=== PATIENT | male | born 2000 | race Hispanic/Latino ===

== ENCOUNTER 2023-01-02 14:02 | Emergency (ER) | payer BC ==
--- OUTSIDE RECORDS SUMMARY | 2023-01-02 14:06 | XMS REPORT | Continuity of Care Document ---
:2000 Author Organization [facility] t Address [address] [place] [address] Care Team Providers Name Role Phone SAMMY RODRIGUEZBRANDON Primary Care Physician Unavailable OVI MOBLEY Attending Clinician Unavailable Humberto Rhoades DO Attending Clinician Ovi Mobley MD Attending Clinician JODY PRATT M.D. Attending Clinician Unavailable Jody Pratt Attending Clinician ASHLEY OSBORN P.A. Attending Clinician Unavailable ATHLETIC, CREDIT CARD CONTROL CLERK Attending Clinician Unavailable Payers Payer Name Policy Type Policy Number Effective Date Expiration Date Suri schultz [facility] [id number] 2017 00:00:00 SELECT Problems Condition Condition Condition Status Onset Resolution Last Treating Co mments Source Name Details Category Date Date Treatment Clinician Date LT KNEE LT KNEE Diagnosis Active 2016-052017-07-08 Memoria Active 0-18 17:28:00 l 02/27/2017 08:00: Shalom stout [facility] 00 LT KNEE LT KNEE Diagnosis Active 2016-052017-09-16 Memoria MPFL MPFL 0-18 17:25:00 l Active 08:00: Sergio 02/27/2017 00 [facility] KNEE KNEE Diagnosis Active 2016-052017-04-11 Mem oria Active 0-18 13:45:00 l 02/27/2017 08:00: Shalom stout [facility] 00 S80.02XA - S80.02XA Diagnosis Active 2016-052017-02-19 Memoria "CONTUSION - 0-09 16:18:00 l OF LEFT "CONTUSION 00:01: Angle nn KNEE, INIT OF LEFT 00 KNEE, INIT Active 02/18/2017 GARCIA Hill Muscle Muscle Problem 2017-11-12 Robin graeme weakness weakness 11:28:10 l (generaliz [facility] ed) 11/12/2017 [facility] Difficulty Difficult Problem 2017-11-12 Memoria in y in 11:28:10 l walking, walking, Shalom n not not elsewhere elsewhere classified classified 8 [facility] Activity, Activity, Problem 2017-11-12 Memoria [place] 11:28:10 l tackle tackle Chaplin football football 11/12/2017 [facility] Strain of Strain of Problem 2017-11-12 Memoria other other 11:28:10 l muscle(s) muscle(s) Herm jagjit and and tendon(s) tendon(s) at lower at lower leg level, leg level, left leg, left leg, subsequent subsequent encounter encounter 11/12/2017 [facility] Pain in Pain in Problem 2017-11-12 Me moria left knee left knee 11:28:10 l 11/12/2017 Shalom n [facility] Contusion Contusion Problem Active [place] of knee, of knee, HL7.CCDAR2 Ph ysici left left ans History of Past Illness Condition Condition Condition Status Onset Resolution Last Treating Co mments Source Name Details Category Date Date Treatment Clinician Date Lateral Lateral Problem 2017-0 2017-11-12 2017-11-12 Memoria subluxatio subluxatio 4-03 11:28:10 11:28:10 l n of left n of left 04:39: Herm jagjit patella, patella, 41 subsequent subsequent encounter encounter 08/13/2017 11/12/2017 [facility] Allergies, Adverse Reactions, Alerts Allergy Allergy Status Severity Reaction(s) Onset Inactive Treating Comm ents Source Name Type Date Date Clinician NO KNOWN Drug Active Univers ALLERGIE Class ity of [facility] Medical Branch Social History Social Habit Start Date Stop Date Quantity Comments Source Exposure to 2022-07-18 2022-07-[address] [facility] SARS-CoV-2 (event) 00:00:00 05:58:00 Medica l Branch Sex Assigned At 2000 2000 [facility] [place] 00:00:00 00:00:00 [facility] Smoking Status Start Date Stop Date Source Never smoked tobacco [facility] Medications Ordered Filled Start Stop Current Ordering Indication Dosage Frequency Signature Comments Components Source Medication Medication Date Date Medication? Clinician (SIG) Name Name NaCl 0.9% 2022- No 1000mL at 999 Uni vers (NS) bolus 3-18 03-18 mL/hr, ity of infusion 13:30: 13:41 1,000 mL, Dejuan as 1,000 mL 00 :00 IV Medical Infusion, Branch ONCE, 1 dose, On 07/28/22 at 0830, STAT NaCl 0.9% 2022- No 1000mL at 999 Uni vers (NS) bolus 3-18 03-18 mL/hr, ity of infusion 11:15: 12:40 1,000 mL, Dejuan as 1,000 mL 00 :00 IV Medical Infusion, Branch ONCE, 1 dose, On 07/28/22 at 0615, STAT Celecoxib Celecoxib 2016-05 Yes ASHLEY 1 tab PO UT 200 MG Oral 200 MG Oral 0-10 PACINI BID with Physici Capsule Capsule 00:00: P.A. food x 2 ans 00 weeks. Vital Signs Vital Name Observation Time Observation Value Comments Source Systolic blood 2022-07-28 13:23:00 152 [facility]Hg[facility] Diastolic blood 2022-07-28 13:23:00 72 mm[facility]Hg[facility] Heart rate 2022-07-28 13:23:00 78 /min [facility] Respiratory rate 2022-07-28 13:23:00 17 /min [facility] Oxygen saturation in 2022-07-28 13:23:00 99 /min [facility] Arterial blood by [facility] Pulse oximetry Branch Body temperature 2022-07-28 10:55:00 36.5 Poornima [facility] Body height 2022-07-28 10:55:00 177.8 cm [facility] Body weight 2022-07-28 10:55:00 87.544 kg [facility] BMI 2022-07-28 10:55:00 27.69 kg/m2 [facility] Procedures Procedure Date / Time Performing Clinician Source Performed FREE T4 2022-07-28 11:16:00 Ovi Mobley [facility] THYROID STIMULATING 2022-07-28 11:16:00 [facility] Branch COMP. METABOLIC PANEL 2022-07-28 11:16:00 Humberto Rhoades [facility] ([id number]) [facility] CBC WITH DIFF 2022-07-28 11:16:00 Humberto Rhoades [facility] D-DIMER 2022-07-28 11:16:00 Humberto Rhoades [facility] URINALYSIS 2022-07-28 11:16:00 Singer Humberto [facility] URINE DRUG (IMMUNOASSAY) 2022-07-28 11:16:00 Humberto Rhoades [facility] DRUG Medical [facility] SCREEN W/O REFLEX NOTICE OF PRIVACY 2022-07-28 10:49:42 Doctor Unassigned, No Univ [facility] PRACTICES Name Medical Branch CONSENT/REFUSAL FOR 2022-07-28 10:48:18 Doctor Unassigned, No Un [facility] DIAGNOSIS AND TREATMENT Name Medical Branch [U] XRAY KNEE 3 VWS LEFT 2017-04-23 00:00:00 [facility] [id number] [U] XRAY KNEE 3 VWS LEFT 2017-04-09 00:00:00 [facility] [id number] [U] XRAY KNEE 3 VWS LEFT 2017-03-25 00:00:00 [place] [facility] [id number] Encounters Start End Encounter Admission Attending Care Care Encounter Source Date/Time Date/Time Type Type Clinicians Facility Department ID 2022-07-28 2022-07-28 Emergency X MISSY MOBLEY ERT [id number] Univers 05:59:00 09:12:00 OVI krishnamurthy [facility] 2022-07-28 2022-07-28 Emergency Humberto Rhoades [facility] [[email or web address]] [id number]. 114 [id number] Univers 05:59:00 09:12:00 [id number] [id number] [facility] 084 Branch 2017-11-19 2017-11-19 JANES Zamora [facility] [id number] [place] 09:00:00 09:00:00 t; JODY PRATT, at [facility] Amirah Martel M.D. 2017-09-16 2017-10-16 OP Therapy nullFlavo [facility] [id number] Memoria 22:00:00 04:59:00 Patients r 04 alin RosadoChaplin 2017-09-16 2017-10-16 OP Therapy nullFlavo [facility] [id number] Memoria 22:00:00 04:59:00 Patients r 04 alin Sergio 2017-09-16 2017-10-15 Outpatient Lowe, 2.16.840. 2.16.840.1. 8 [id number] 17:00:00 23:59:00 Jody Lobato.[id number]. [id number] 04 Pete [id number] 5.62 2017-10-08 2017-10-08 JANES Zamora [facility] [id number] [place] 07:00:00 07:00:00 t; JODY PRATT at [facility] Amirah Martel M.D. 2017-08-14 2017-09-13 OP Therapy nullFlavo [facility] [id number] Memoria 22:00:00 04:59:00 Patients r 03 alin Sergio 2017-08-14 2017-09-13 OP Therapy nullFlavo [facility] [id number] Memoria 22:00:00 04:59:00 Patients r 03 alin Sergio 2017-08-14 2017-09-12 Outpatient Santa, 2.16.840. 2.16.840.1. 8 [id number] 17:00:00 23:59:00 Jody Yadav518331. [id number] 03 Pete [id number] 5.62 2017-09-10 2017-09-10 JANES Zamora UTP [id number] [place] 08:30:00 08:30:00 t; JODY PRATT [facility] [place] Amirah Martel M.D. 2017-07-08 2017-08-07 OP Therapy nullFlavo [facility] [id number] Memoria 23:00:00 04:59:00 Patients r 02 alin Sergio 2017-07-08 2017-08-07 OP Therapy nullFlavo [facility] [id number] Memoria 23:00:00 04:59:00 Patients r [place] 2017-07-08 2017-08-06 Outpatient Santa 2.16.840. 2.16.840.1. 8 [id number] 17:00:00 23:59:00 Jody [id number]. [id number] 02 Pete [id number] 5.62 2017-08-06 2017-08-06 Shelly PRATT [facility] Orthopedics [id number] [place] 09:30:00 09:30:00 t; JODY PRATT at [facility] Amirah Martel M.D. 2017-07-09 2017-07-09 Shelly PRATT [facility] [id number] [place] 09:00:00 09:00:00 t; JODY PRATT [facility] [place] Amirah Martel M.D. 2017-06-04 2017-06-04 Shelly OSBORN [facility] [id number] [place] 14:00:00 14:00:00 t; ASHLEY OSBORN, Ph ysici ASHLEY, P.A. ans P.A. 2017-04-10 2017-05-10 OP Therapy nullFlavo [facility] [id number] Memoria 14:00:00 05:59:00 Patients r [place] 2017-04-10 2017-05-10 OP Therapy nullFlavo [facility] [id number] Memoria 14:00:00 05:59:00 Patients r [place] 2017-04-10 2017-05-09 Outpatient Santa, 2.16.840. 2.16.840.1. 8 [id number] 08:00:00 23:59:00 Jody [id number] 01 Pete [id number] 5.62 2017-04-23 2017-04-23 Shelly PRATT [facility] Orthopedics [id number] [place] 08:00:00 08:00:00 t; JODY PRATT, at [facility] Amirah Martel M.D. 2017-04-09 2017-04-09 Shelly OSBORN [facility] Orthopedics [id number] [place] 14:00:00 14:00:00 t; [facility] P.AJuan 2017-02-28 2017-03-30 OP Therapy nullFlavo [facility] [id number] Memoria 13:49:00 05:59:00 Patients r 00 l Sergio 2017-02-28 2017-03-30 OP Therapy nullFlavo [facility] [id number] Memoria 13:49:00 05:59:00 Patients r 00 l Chaplin 2017-02-28 2017-03-29 Outpatient Santa, 2.16.840. 2.16.840.1. 8 [id number] 08:49:00 23:59:00 Jody [id number]. [id number] 00 Pete [id number] 5.62 2017-03-25 2017-03-25 Appointmen IRENA, [facility] Memorial [id number] [place] 15:00:00 15:00:00 t; [facility] Orthopedics ans P.AJuan 2017-03-11 2017-03-11 Appointmen ATHLETIC, UTP UTP [id number] [place] 13:30:00 13:30:00 t; CREDIT CARD CONTROL CLERK Physic i ATHLETIC, ans CREDIT CARD CONTROL CLERK 2017-03-04 2017-03-04 Appointmen ATHLETIC, UTP UTP [id number] [place] 09:30:00 09:30:00 t; CREDIT CARD CONTROL CLERK Physic i ATHLETIC, ans CREDIT CARD CONTROL CLERK 2017-02-27 2017-02-27 Appointmen LOWE, [facility] UTP [id number] [place] 09:30:00 09:30:00 t; JODY PRATT Physi ci WALTER, M.D. ans M.D. 2017-02-22 2017-02-22 Appointmen SANTA, [facility] UTP [id number] [place] 13:00:00 13:00:00 t; JODY PRATT Physi ci WALTER, M.D. ans M.D. 2017-02-19 2017-02-20 Outpt Diag nullFlavo [facility] [id number] Memoria 21:08:00 04:59:00 Services r Outpatient 00 l Imaging Sergio Chaplin 2017-02-19 2017-02-20 Outpt Diag nullFlavo [facility] [id number] Memoria 21:08:00 04:59:00 Services r Outpatient 00 l Imaging Sergio Hill 2017-02-19 2017-02-19 [facility]patient [facility] [id number] 16:08:00 23:59:00 Jody 00 Pete 2017-02-19 2017-02-19 AppointJANES Moya Orthopedics [id number] [place] 13:45:00 13:45:00 t; ASHLEY OSBORN, at [facility] Ph ysici Saritha RAMIREZ ans P.AJuan Results Test Description Test Time Test Comments Results Result Comments Source THYROID STIMULATING HORMONE 2022-07-28 13:24:39 Test Item Value Reference Range Interpretation Comme nts TSH (test code = 8047336230) 4.65 See_Comment [Automated message] The system which generated this result transmitted ref erence range: 0.45 - 4.70 mIU/L. T he reference range was not used to interpret this result as brent l/abnormal. Lab Interpretation (test code = Normal 34092-2) [facility] [id number] 13:10:37 Test Item Value Reference Range Interpretation Comments FREE T4 (test code = 1.06 See_Comment [Autom ated message] [id number]) The system whic h generated this result transmitted ref erence range: 0.78 - 2 .20 ng/dL:. The ref erence range was not u sed to interpret this result as normal/abnor mal. Lab Interpretation (test Normal code = 50094-8) [facility]. METABOLIC PANEL (47271)2022-07-28 12:26:25 Test Item Value Reference Range Interpretation Comments NA (test code = 136 mmol/L 135-145 9791803859) K (test code = 3.5 mmol/L 3.5-5.0 1573840219) CL (test code = 101 mmol/L 98-108 0618887590) CO2 TOTAL (test code = 24 mmol/L 23-31 8327777329) AGAP (test code = 11 2-16 6661652785) BUN (test code = 14 mg/dL 7-23 7813065078) GLUCOSE (test code = 113 mg/dL 70-110 H 5157566067) CREATININE (test code = 1.08 mg/dL 0.60-1.25 0278665922) TOTAL BILI (test code = 0.7 mg/dL 0.1-1.5 9811093605) CALCIUM (test code = 9.2 mg/dL 8.6-10.6 2026497686) T PROTEIN (test code = 7.7 g/dL 6.3-8.2 9059716787) ALBUMIN (test code = 4.8 g/dL 3.5-5.0 7991299261) ALK PHOS (test code = 64 U/L 34-122 3712446866) ALTv (test code = 24 U/L 5-50 1742-6) AST(SGOT) (test code = 26 U/L 13-40 3092935949) eGFR (test code = 85.5 mL/min/1.73m2 7953117595) ESTEPHANIE (test code = ESTEPHANIE) Association of Glomerular Filtration Rate (GFR) and Staging of Kidney Disease* + --+ --+ ------+| GFR (mL/min/1.73 m2) ?| With Kidney Damage ?| ?Without Kidney Damage+ --------+ --------+ +| ?>90 ?| ?Stage one ?| ? Normal ?+ ---+ ---+ -------+| ?60-89 ?| ?Stage two ?| ? Decreased GFR ? + --+ --+ ------+| ?30-59 ?| ?Stage three ?| ? Stage three ? + --+ --+ ------+| ?15-29 ?| ?Stage four ? | ? Stage four ?+ ---+ ---+ -------+| ?<15 (or dialysis) ? ?| ?Stage five ? | ? Stage five ?+ ---+ ---+ -------+ *Each stage assumes the associated GFR level has been in effect for at least three months. ?Stages 1 to 5, with or without kidney disease, indicate chronic kidney disease. Notes: Determination of stages one and two (with eGFR >59mL/min/1.73 m2) requires estimation of kidney damage for at least three months as defined by structural or functional abnormalities of the kidney, manifested by either:Pathological abnormalities or Markers of kidney damage (including abnormalities in the composition of the blood or urine or abnormalities in imaging tests). Lab Interpretation Abnormal (test code = 49291-0) [id number] 12:10:20 Test Item Value Reference Interpretation Comments Range D-DIMER (test code = 0.27 See_Comment [Autom ated [id number]) message] The system which generated this result transmitted reference range : <0.41 ?g/mL (FEU). The reference range was not used to interpret this result as normal/abnormal . ESTEPHANIE (test code = This test may be ESTEPHANIE) used in conjunction with a clinical pretest probability (PTP) assessment model to exclude venous thromboembolism (VTE) in patients suspected of deep venous thrombosis (DVT) and pulmonary embolism (PE) A D-Dimer value less than 0.50 ?g/ml (FEU) has a negative predicative value of 96 to 100% (95% CI)and 97 to 100% (95% CI) as an aid in the diagnosis of deep vein thrombosis (DVT) and pulmonary embolism when there is low or moderate pretest probability of PE or DVT. D-Dimer values are expressed in initial fibrinogen equivalent units (FEU)" The assay results should be used with other information, including the clinical context, in forming a diagnosis. Lab Interpretation Normal (test code = 49395-4) [facility] WITH [id number] 11:48:19 Test Item Value Reference Range Interpretation Comments WBC (test code = 13.59 See_Comment H [Automated 4367-2) message] The sy stem which generated this result transmitted reference range : 4.20 - 10.70 10*3/?L. The reference range was not used to interpret this result as normal/abnormal . RBC (test code = 5.28 See_Comment [Automated 636-8) message] The sy stem which generated this result transmitted reference range : 4.26 - 5.52 10*6/?L. The reference range was not used to interpret this result as normal/abnormal . HGB (test code = 15.3 g/dL 12.2-16.4 718-7) HCT (test code = 45.5 % 38.4-49.3 4544-3) MCV (test code = 86.2 fL 81.7-95.6 787-2) MCH (test code = 29.0 pg 26.1-32.7 785-6) MCHC (test code = 33.6 g/dL 31.2-35.0 786-4) RDW-SD (test code = 38.5 fL 38.5-51.6 77110-1) RDW-CV (test code = 12.3 % 12.1-15.4 788-0) PLT (test code = 294 See_Comment [Automated 777-3) message] The sy stem which generated this result transmitted reference range : 150 - 328 10*3/ ?L. The reference r margarito was not used to interpret this result as normal/abnormal . MPV (test code = 9.1 fL 9.8-13.0 L 67930-6) NRBC/100 WBC (test 0.0 See_Comment [Automat ed code = 9955514404) message] The system which generated this result transmitted reference range : 0.0 - 10.0 /100 WBCs. The refer ence range was not u sed to interpret th is result as normal/abnormal . NRBC x10^3 (test code See_Comment [Auto mated = 3599636811) message] The s ystem which generated this result transmitted reference range : 10*3/?L. The reference range was not used to interpret this result as normal/abnormal . GRAN MAT (NEUT) % 54.0 % (test code = 770-8) IMM GRAN % (test code 0.40 % = 9016777083) LYMPH % (test code = 38.0 % 736-9) MONO % (test code = 6.2 % 5905-5) EOS % (test code = 1.0 % 713-8) BASO % (test code = 0.4 % 706-2) GRAN MAT x10^3(ANC) 7.35 10*3/uL 1.99-6.95 H (test code = 3047046157) IMM GRAN x10^3 (test 0.05 10*3/uL 0.00-0.06 code = 1127214494) LYMPH x10^3 (test code 5.17 10*3/uL 1.09-3.23 H = 731-0) MONO x10^3 (test code 0.84 10*3/uL 0.36-1.02 = 742-7) EOS x10^3 (test code = 0.13 10*3/uL 0.06-0.53 711-2) BASO x10^3 (test code 0.05 10*3/uL 0.01-0.09 = 704-7) Lab Interpretation Abnormal (test code = 73378-6) [facility][U] XRAY KNEE 3 VWS LEFT [id number] 08:40:00Images acquired, not reported on this accession number.[facility][U] XRAY KNEE 3 VWS LEFT [id number] 14:15:00Images acquired, not reported on this accession number.[facility][U] XRAY KNEE 3 VWS LEFT [id number] 15:53:00Images acquired, not reported on this accession number.[facility] Notes Date/Time Note Provider Source 2017-02-19 16:30:00-00:00 EXAM: MR LEFT KNEE WITHOUT CONTRAST GARCIA Rosadoann DATE: 02/19/2017 4:19 PM CDT INDICATION: - lt knee contusion s80.02xa COMPARISON: None TECHNIQUE: Multiplanar, multisequence noncontras t imaging of the knee. DISCUSSION: Menisci: Medial meniscus: Intact. Lateral meniscus: Intact. Ligaments: The ACL, PCL, med ial and lateral collateral ligaments and the capsular ligaments are intact. Extensor mechanism: The quad riceps tendon, patella and the patellar tendon are intact. There is a full-thickness tear of the medial patellofemoral ligament approximately 1 cm from its patellar insertion . There is an 8 mm transvers e by 30 mm craniocaudal defect in the anteromedial knee joint capsule at the site of MPFL tear (series 4 images 11-18). Trochlea is hypoplastic with flat to mildly convex contour superiorly. TT-TG distance is approximately 2.3 cm. Muscles: Grade 1 strain of the vastus medialis m uscle. Cartilage: No chondral defects. Bone: Kissing bone marrow co ntusions of the inferomedial patella and nonarticular portion of the lateral femoral condyle. No fracture identified. Soft tissue: Large knee join t effusion. Anterior knee soft tissue edema. No abnormality of the neurovascular structures. IMPRESSION: 1. Transient patellar dislocation: * Kissing bone marrow contus ions of the inferomedial patella and nonarticular portion of the lateral femoral condyle. * Full-thickness tear of the medial patellofemoral ligament approximately 1 cm from its patellar insertion. 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 * TT-TG distance is approximately 2.3 cm. 2. 8 mm transverse by 30 mm craniocaudal defect in the anteromedial knee joint capsule at the site of MPFL tear (series 4 images 11-18). 3. Grade 1 strain of the vastus medialis muscle. 4. Large knee joint effusion.
[2023-01-02 15:08] LABS: Absolute Lymphocytes (CBC) 2.5 K/uL (0.7-4.9); Hematocrit 45.8 % (39.6-49.0); Lymphocytes % 19.6 % (15.3-44.8); MCV 85.2 fL (80-100); MPV 7.2 fL (7.6-11.3); Platelets 296 thou/uL (152-406); RBC Red Blood Cell Count 5.38 M/uL (4.33-5.43)
[2023-01-02 15:14] LABS: SARS-CoV-2 Antigen Rapid Res Negative (Negative)
--- NOTE | 2023-01-02 15:17 | RAD REPORT ---
EXAM DESCRIPTION: CT - Head Brain Wo Cont - 01/02/2023 3:04 pm CLINICAL HISTORY: Dizziness;Numbness Headache, drowsiness COMPARISON: No comparisons TECHNIQUE: All CT scans are performed using dose optimization technique as appropriate and may inclu de automated exposure control or mA/KV adjustment according to patient size. FINDINGS: No intracranial hemorrhage, hydrocephalus or extra-axial fluid collection.No areas of brai n edema or evidence of midline shift. The paranasal sinuses and mastoids are clear. The calvarium is intact. IMPRESSION: No acute intracranial abnormality.
[2023-01-02 15:31] LABS: Albumin 4.4 g/dL (3.4-5.0); Bilirubin Direct 0.2 mg/dL (0-0.2); Bilirubin Indirect, Calculated 0.5 mg/dL (0.2-0.8); Bilirubin Total 0.7 mg/dL (0.2-1.0); Magnesium 2.1 mg/dL (1.6-2.4); Potassium 4.2 mEq/L (3.5-5.1); Protein, Total 8.2 g/dL (6.4-8.2); Thyroid Stimulating Hormone 0.917 uIU/mL (0.358-3.740); Troponin High Sensitivity 6.2 pg/mL (<58.9)
[2023-01-02 17:22] LABS: Specific Gravity 1.026 (1.005-1.030); Urine Bacteria <20 /HPF (<20); Urine Bilirubin NEGATIVE (Negative); Urine Blood Negative (Negative); Urine Clarity Extremely Turbid (Clear); Urine Color Light-Yellow (Yellow); Urine Glucose NEGATIVE (Negative); Urine Mucus Slight /HPF (None Seen); Urine Protein TRACE (Negative); Urine RBC <5 /HPF (None Seen); Urine Urobilinogen Normal (Normal); Urine pH 7.5 (5.0-7.0)
--- NOTE | 2023-01-02 17:28 | EDPHYS ---
Physician Documentation [facility] Name: Rusty Jeffrey Age: 22 yrs Sex: Male : 2000 Arrival Date: 01/02/2023 Time: 14:02 Bed 7 Private MD: ED Physician Tai Gotti HPI: 01/02 16:41 This 22 yrs old Male presents to ER via Ambulatory with complaints of High sb4 Blood Pressure, Dizziness, Numbness Of Arm. 17:28 other orta healthy male comes in with complaints of elevated BP readings at work, right sb4 facial/temporal pain, intermittent dizziness for a week or so. he denies any current symptoms. he has an appt to see his PCP at the end of the month but mom was concerned and wanted him to be evaluated . Historical: - Allergies: 14:26 No Known Allergies; iw - Home Meds: 14:26 None [Active]; iw - PMHx: 14:26 None; iw - PSHx: 14:26 knee; iw - Immunization history:: Adult Immunizations not up to date. - Social history:: Smoking status: Patient denies any tobacco usage or history of. ROS: 17:28 Constitutional: Negative for fever, chills, and weight loss. sb4 17:28 Neuro: Positive for dizziness, headache, numbness. 17:28 All other systems are negative. Exam: 17:28 Constitutional: This is a well developed, well nourished patient who is awake, alert, sb4 and in no acute distress. Head/Face: Normocephalic, atraumatic. Eyes: Extra-ocular motions intact. Periorbital areas with no swelling, redness, or edema. ENT: Mucous membranes moist. Cardiovascular: Regular rate and rhythm with a normal S1 and S2. Respiratory: Lungs have equal breath sounds bilaterally, clear to auscultation and percussion. No rales, rhonchi or wheezes noted. No increased work of breathing, no retractions or nasal flaring. Abdomen/GI: Soft, non-tender, no distension. Skin: Warm, dry with normal turgor. Normal color with no rashes, no lesions, and no evidence of cellulitis. MS/ Extremity: Pulses equal, no cyanosis. Neurovascular intact. Full, normal range of motion. Neuro: Awake and alert, GCS 15, oriented to person, place, time, and situation. Cranial nerves II-XII grossly intact. Motor strength 5/5 in all extremities. Sensory grossly intact. Cerebellar exam normal. Normal gait. Vital Signs: 14:23 BP 161 / 82; Pulse 82; Resp 16; Temp 98.4; Pulse Ox 100% on R/A; Weight 88.45 kg; iw Height 5 ft. 10 in. ; Pain 6/10; 14:46 BP 151 / 75 Supine; Pulse 85; hb 14:52 BP 186 / 80 Sitting; Pulse 92; hb 15:03 BP 146 / 79 Standing; Pulse 88; hb 15:57 BP 128 / 67; Pulse 79; Resp 16; Pulse Ox 100% on R/A; hb 17:15 BP 130 / 72; Pulse 89; Resp 15; Pulse Ox 99% on R/A; hb 14:23 Body Mass Index 27.98 (88.45 kg, 177.8 cm) iw 14:23 Pain Scale: Adult iw MDM: 14:09 Patient medically screened. sb4 17:28 Differential diagnosis: electrolyte abnormality, covid, cardiac arrythmia, brain mass, sb4 complex migraine. Data interpreted: Pulse oximetry: on room air is 99 %. Interpretation: normal. Data reviewed: vital signs, nurses notes, lab test result(s), EKG, radiologic studies, and as a result, I will discharge patient. Historians other than the Patient: Parent: mother. Counseling: I had a detailed discussion with the patient and/or guardian regarding the historical points, exam findings, and any diagnostic results supporting the discharge/admit diagnosis, the presence of at least one elevated blood pressure reading (>120/80) during this emergency department visit, lab results, radiology results, the need for outpatient follow up, a neurologist, to return to the emergency department if symptoms worsen or persist or if there are any questions or concerns that arise at home. 01/02 14:38 Order name: Basic Metabolic Panel; Complete Time: 15:32 sb4 01/02 14:38 Order name: CBC with Diff; Complete Time: 15:32 sb4 01/02 14:38 Order name: LFT's; Complete Time: 15:32 sb4 01/02 14:38 Order name: Magnesium; Complete Time: 15:32 sb4 01/02 14:38 Order name: Troponin HS; Complete Time: 15:32 sb4 01/02 14:38 Order name: TSH; Complete Time: 15:32 sb4 01/02 14:38 Order name: UAM; Complete Time: 17:22 sb4 01/02 14:38 Order name: CPK; Complete Time: 15:32 sb4 01/02 14:38 Order name: SARS RAPID; Complete Time: 15:32 sb4 01/02 14:38 Order name: Head Brain Wo Cont CT; Complete Time: 15:32 sb4 01/02 14:38 Order name: EKG; Complete Time: 14:38 sb4 01/02 14:38 Order name: EKG - Nurse/Tech; Complete Time: 14:58 sb4 01/02 14:38 Order name: IV Saline Lock; Complete Time: 15:02 sb4 01/02 14:38 Order name: Labs collected and sent; Complete Time: 15:02 sb4 01/02 14:38 Order name: Orthostatics; Complete Time: 15:02 sb4 EC:04 Rate is 72 beats/min. Rhythm is regular, Normal Sinus Rhythm. SD interval is normal at sb4 112 msec. QRS interval is normal at 86 msec. QT interval is normal at 372 msec. No Q waves. T waves are Normal. No ST changes noted. Clinical impression: Normal ECG. Interpreted by me. Reviewed by me. Administered Medications: No medications were administered Disposition: 01/03 07:36 Co-signature as Attending Physician, Tai Gotti MD I reviewed the patient's care rt provided by the Advanced Practice Provider and agree with the diagnosis and treatment plan. Disposition Summary: 01/02/23 17:28 Discharge Ordered Location: Home sb4 Problem: new sb4 Symptoms: have improved sb4 Condition: Stable sb4 Diagnosis - Migraine with aura sb4 Followup: sb4 - With: Uvaldo Negrete MD - When: As needed - Reason: Further diagnostic work-up, Recheck today's complaints, Re-evaluation by your physician Discharge Instructions: - Discharge Summary Sheet sb4 - Migraine Headache, [id number] sb4 Forms: - Medication Reconciliation Form sb4 - Thank You Letter sb4 - Antibiotic Education sb4 - Prescription Opioid Use sb4 - Patient Portal Instructions sb4 - Leadership Thank You Letter sb4 Signatures: Dispatcher [employer] Sheba Mckee RN RN Samantha Cain, DIMITRIS PA-C sb4 Tai Gotti MD MD rt
--- NOTE | 2023-01-02 17:28 | ER ---
Nurse's Notes [facility] Name: Rusty Jeffrey Age: 22 yrs Sex: Male : 2000 Arrival Date: 01/02/2023 Time: 14:02 Bed 7 Private MD: Diagnosis: Migraine with aura Presentation: 01/02 14:23 Chief complaint: Patient states: for past three days i've had a pain on right side of iw my head and tingling on right side of face, when i wake up my arms feel tingly , the arm issue started a couple weeks ago, the head pressure and facial tingling started 3 days ago , has been having high BP this week , I get dizzy at work. Coronavirus screen: At this time, the client does not indicate any symptoms associated with coronavirus-19. Ebola Screen: Patient negative for fever greater than or equal to 101.5 degrees Fahrenheit, and additional compatible Ebola Virus Disease symptoms Patient denies exposure to infectious person. Patient denies travel to an Ebola-affected area in the 21 days before illness onset. No symptoms or risks identified at this time. Initial Sepsis Screen: Does the patient meet any 2 criteria? No. Patient's initial sepsis screen is negative. Does the patient have a suspected source of infection? No. Patient's initial sepsis screen is negative. Risk Assessment: Do you want to hurt yourself or someone else? Patient reports no desire to harm self or others. Onset of symptoms was December 30, 2022. 14:23 Method Of Arrival: Ambulatory iw 14:23 Acuity: BETH 3 iw Historical: - Allergies: 14:26 No Known Allergies; iw - Home Meds: 14:26 None [Active]; iw - PMHx: 14:26 None; iw - PSHx: 14:26 knee; iw - Immunization history:: Adult Immunizations not up to date. - Social history:: Smoking status: Patient denies any tobacco usage or history of. Screenin:04 [facility] ED Fall Risk Assessment (Adult) Score/Fall Risk Level 0 - 2 = Low Risk hb Oriented to surroundings, Maintained a safe environment. Abuse screen: Denies injuries from another. Nutritional screening: No deficits noted. Tuberculosis screening: No symptoms or risk factors identified. Assessment: 15:03 General: Appears in no apparent distress. Behavior is calm, cooperative. Pain: Denies hb pain. Neuro: Level of Consciousness is awake, alert, obeys commands, Oriented to person, place, time, situation. Neuro: Reports intermittent dizziness and paresthesia of hands. Cardiovascular: Patient's skin is warm and dry. Respiratory: Respiratory effort is even, unlabored, Respiratory pattern is regular, symmetrical. GI: No signs and/or symptoms were reported involving the gastrointestinal system. : No signs and/or symptoms were reported regarding the genitourinary system. EENT: No signs and/or symptoms were reported regarding the EENT system. Derm: Skin is pink, warm \T\ dry. Musculoskeletal: No signs and/or symptoms reported regarding the musculoskeletal system. 15:58 Reassessment: Patient appears in no apparent distress at this time. Patient and/or hb family updated on plan of care and expected duration. Pain level reassessed. Patient is alert, oriented x 3, equal unlabored respirations, skin warm/dry/pink. 17:15 Reassessment: Patient appears in no apparent distress at this time. Patient and/or hb family updated on plan of care and expected duration. Pain level reassessed. Patient is alert, oriented x 3, equal unlabored respirations, skin warm/dry/pink. Vital Signs: 14:23 BP 161 / 82; Pulse 82; Resp 16; Temp 98.4; Pulse Ox 100% on R/A; Weight 88.45 kg; iw Height 5 ft. 10 in. ; Pain 6/10; 14:46 BP 151 / 75 Supine; Pulse 85; hb 14:52 BP 186 / 80 Sitting; Pulse 92; hb 15:03 BP 146 / 79 Standing; Pulse 88; hb 15:57 BP 128 / 67; Pulse 79; Resp 16; Pulse Ox 100% on R/A; hb 17:15 BP 130 / 72; Pulse 89; Resp 15; Pulse Ox 99% on R/A; hb 14:23 Body Mass Index 27.98 (88.45 kg, 177.8 cm) iw 14:23 Pain Scale: Adult iw ED Course: 14:04 Patient arrived in ED. im 14:08 Samantha Carmen PA-C is PHCP. sb4 14:08 Tai Gotti MD is Attending Physician. sb4 14:26 Triage completed. iw 14:27 Arm band placed on. iw 14:29 Leal, Allie, RN is Primary Nurse. hb 14:45 Inserted saline lock: 20 gauge in right antecubital area, using aseptic technique. hb Blood collected. 15:02 SARS RAPID Sent. hb 15:02 CPK Sent. hb 15:02 TSH Sent. hb 15:02 Basic Metabolic Panel Sent. hb 15:02 CBC with Diff Sent. hb 15:02 LFT's Sent. hb 15:02 Magnesium Sent. hb 15:02 Troponin HS Sent. hb 15:04 Patient has correct armband on for positive identification. Provided Education on: . hb 15:06 Head Brain Wo Cont CT In Process Unspecified. EDMS 17:26 Uvaldo Negrete MD is Referral Physician. sb4 17:39 No provider procedures requiring assistance completed. IV discontinued, intact, hb bleeding controlled, No redness/swelling at site. Administered Medications: No medications were administered Medication: 15:04 VIS not applicable for this client. hb Outcome: 17:28 Discharge ordered by MD. sb4 17:39 Discharged to home ambulatory, with family. hb 17:39 Condition: stable 17:39 Discharge instructions given to patient, family, Instructed on discharge instructions, follow up and referral plans. medication usage, Demonstrated understanding of instructions, follow-up care, medications. 17:40 Patient left the ED. hb Signatures: Dispatcher [employer] Sheba Mckee, FAHAD RN Allie Vazquez, RN RN Samantha Albert, PA-C PA-C sb4 Liza Mccauley
[2023-01-02 17:53] VITALS: TEMP 98.4
[2023-01-02 18:07] VITALS: BP 130/72; O2SAT 99
--- NOTE | 2023-01-03 12:39 | EKG ---
Test Date: 2023-01-02 Test Time: 14:52:50 Supervisor Network Control Operators: SHALINI MEASUREMENT RESULTS: Intervals: Rate: 72 [place]: 112 QRSD: 86 QT: 372 QTc: 407 [place]: P: 54 [place]: 112 QRS: 77 T: 35 INTERPRETIVE STATEMENTS: Normal sinus rhythm Normal ECG No previous ECG available for comparison Electronically Signed On 01-03-23 12:37:07 CDT by James Bryan
== END 2023-01-02 17:40 | disposition home or self-care (01) ==
LOC: ER 14:02
DX: G43.109 Migraine with aura, not intractable, without status migrainosus (principal); Z20.822 Contact with and (suspected) exposure to COVID-19
CPT/HCPCS: 36415; 70450; 80048; 80076; 81001; 82550; 83735; 84443; 84484; 85025; 87811; 93005